=== PATIENT | male | born 1970 | race Asian ===

== ENCOUNTER 2021-08-16 08:32 | Outpatient (REF) | payer OTHER, SELFPAY ==
[2021-08-16 11:04] LABS: MANUAL DIFF FLAG NO
[2021-08-16 11:17] LABS: Basophils Percent Auto 0.5 % (0-2); Eosinophils Absolute Auto 0.1 X10*3/uL (0.0-0.4); Eosinophils Percent Auto 1.9 % (0-4); Hematocrit 48.4 % (42.0-52.0); Hemoglobin 16.3 g/dl (14.0-18.0); Imm Gran Abs Auto 0.01 X10*3/uL (0.00-0.03); Imm Gran Pct Auto 0.3 % (0.0-0.4); Lymphocytes Absolute Auto 1.4 X10*3/uL (1.2-4.9); Lymphocytes Percent Auto 39.3 % (20-40); Mean Corpuscular HGB Conc 33.7 g/dl (31.0-36.0); Mean Corpuscular Hemoglobin 30.6 pg (27.0-33.0); Mean Platelet Volume 10.5 fL (9.4-12.4); Monocytes Absolute Auto 0.3 X10*3/uL (0.1-1.2); Neutrophils Absolute Auto 1.8 x10*3/uL (2.0-8.3); Platelet Count 159 X10*3/uL (160-400); Red Blood Count 5.32 X10*6/uL (4.60-5.80); Red Cell Distribution Width 12.2 % (11.0-16.0); White Blood Count 3.7 X10*3/uL (4.8-10.8)
[2021-08-16 11:37] LABS: Alanine Aminotransferase 22 U/L (0-40); Albumin Level 4.3 g/dL (3.5-5.0); Alkaline Phosphatase 85 U/L (39-117); Anion Gap 13 (12-20); Aspartate Amino Transferase 24 U/L (5-37); Bilirubin Total 0.9 mg/dL (0.0-1.0); Blood Urea Nitrogen 15 mg/dL (9-16); Carbon Dioxide 28 mmol/L (22-29); Chloride 105 mmol/L (96-108); Cholesterol 130 mg/dL; Estimated Glomerular Filt Rate > 60; Glucose Fasting 90 mg/dL (60-99); HDL Cholesterol 33 mg/dL; LDL Cholesterol Calculated 72 mg/dl; Potassium 3.7 mmol/L (3.3-5.1); Sodium 142 mmol/L (135-145); Total Protein 7.1 g/dL (6.5-8.0); Triglycerides 126 mg/dL
== END 2021-08-16 08:33 | disposition home or self-care (01) ==
LOC: HO.HMGCLDS 08:32
PROVIDERS: PCP Internal Medicine; Visit Provider Internal Medicine
DX: Z00.01 Encounter for general adult medical examination with abnormal findings (principal); M19.042 Primary osteoarthritis, left hand
CPT/HCPCS: 36415; 80053; 80061; 85025

== ENCOUNTER 2023-08-19 10:08 | Outpatient (AMB) | payer OTHER, SELFPAY ==
--- NOTE | 2023-08-19 10:23 | A.OFFPC_ITS ---
Vital Signs 08/19/23 10:24 Height 5 ft 10 in Weight 172 lb 2 oz BMI 24.7 BP 110/72 Blood Pressure Location Rt brachial Position Sitting Pulse 61 Pulse Source Pulse Oximeter Pulse Oximetry (%) 96 Oxygen Delivery Method Room Air Intake Visit Reasons: PE Allergies omeprazole Allergy (Unknown, Verified 08/19/23 10:26) sob, itchy eys. ENVIROMENTAL Allergy (Mild, Uncoded 08/07/21 09:05) CONGESTION Medication List - Last Reconciled 08/19/23 by Aguilar Chadwick MD tenofovir disoproxil fumarate 300 mg PO DAILY Tobacco use date assessed: 08/19/23 Dental Screening Dental Screen Date: 08/19/23 Did you have a dental visit in the last 12 months?: Yes Did you have a dental problem in the last 6 months where you did not have access to dental care?: No Was dental information given to patient?: Patient has dentist HPI PE HPI Details Patient is a 52-year-old gentleman came in today for his physical exam appointment Patient says that at times he feels little fluttering in his heart He does not have any family history of coronary artery disease, I also do not have any lipid profile since 2021 Patient was notified to do labs fasting EKG done today showed normal sinus rhythm no acute findings. He is still taking medication for hepatitis-B infection through Dr. SCHMITT gastroenterology [facility] for He had a colonoscopy last year as well in August which was benign next 1 will be in 2031 Patient have severe osteoarthritis in small joints of hand he is also complaining of pain in his shoulders and knees He has taking a leave [id number] with breakfast as needed [facility] Social History Housing: House Patient Tobacco Use Status: Never used Tobacco e-Cigarette/Vaping Use: Never Used Current occupational status: employed Cognitive needs: No Hearing needs: No Vision needs: No Questionnaire PHQ-9 Over the last 2 weeks, how often have you been bothered by any of the following problems? 1. Little interest or pleasure in doing things: not at all 2. Feeling down, depressed, or hopeless: not at all 3. Trouble falling or staying asleep, or sleeping too much: not at all 4. Feeling tired or having little energy: not at all 5. Poor appetite or overeating: not at all 6. Feeling bad about yourself - or that you are a failure or have let yourself or your family down: not at all 7. Trouble concentrating on things, such as reading the newspaper or watching television: not at all 8. Moving or speaking so slowly that other people could have noticed. Or the opposite - being so fidgety or restless that you have been moving around a lot more than usual: not at all 9. Thoughts that you would be better off or of hurting yourself in some way: not at all Total score: 0 Depression Screening Interpretation: Negative Depression Screening Done: Yes 24169 - PHQ-9 Billing: Yes Source: Developed by Drs. Sheldon Choe, Ladonna Wood, Wesly Beck and colleagues, with an educational david from [employer]. Thrive Questionnaire Date Thrive assessed: 08/19/23 I am a: Patient What is your living situation today?: I have a steady place to live Within the past 12 months, did the food you bought not last and you didn't have the money to get more?: Never true Within the past 12 months, did you worry whether your food would run out before you got money to buy more?: Never true Do you have trouble paying for medicines?: No Do you have trouble getting transportation to medical appointments?: No Do you have trouble paying your heating and electricity bill?: No Do you have trouble taking care of your child, family member or friend?: No Do you have trouble with day-to-day activities such as bathing, preparing meals, shopping, managing finances, etc.?: No Are you currently unemployed and looking for a job?: No Are you interested in more education?: No Please select the resources that you would like help with: None Currently or been in a relationship where the following occur: no concerns reported THRIVE Score: 0 AUDIT C Alcohol Use Questionnaire (AUDIT-C) 1. How often do you have a drink containing alcohol?: Never 3. How often do you have six or more drinks on one occasion?: Never Total Score: 0 Score Reviewed/Action Taken: Yes HAI-7 AMB Questionnaire HAI-7 Date HAI - 7 assessed: 08/19/23 Feeling nervous, anxious, or on edge: 0 = Not at all Not being able to stop or control worryin = Not at all Worrying too much about different things: 0 = Not at all Trouble relaxin = Not at all Being so restless that it is hard to sit still: 0 = Not at all Becoming easily annoyed or irritable: 0 = Not at all Feeling afraid as if something awful might happen: 0 = Not at all Total HAI-7 score (0-4 normal; 5-9 mild; 10-14 moderate; 15-21 severe): 0 Source: Developed by Drs. Sheldon Choe, Ladonna Wood, Wesly Beck and colleagues, with an educational david from [employer]. HAI-7 Assessment Billing HAI-7 Assessment Tool: HAI-7 Assessment 01765 Review of Systems Const Denies chills, Denies fever(s) and Denies headache(s) Eyes Denies blurry vision ENT Denies headache(s), Denies nasal discharge, Denies nasal obstruction, Denies odynophagia and Denies sinus pain Card Denies chest pain at rest and Denies chest pain with activity Resp Denies cough and Denies hemoptysis GI Denies diarrhea, Denies odynophagia, Denies vomiting and Denies hematemesis Reports as per HPI Musc Denies abnormal gait Skin/Breast Reports as per HPI Neuro Denies Neuro-related abnormal movements, Denies Abnormal speech present, Denies abnormal gait, Denies headache(s) and Denies Sensory deficit (Neuro) Psych Denies mood swings and Denies paranoia Endo Reports as per HPI Shiva/Lymph Reports as per HPI Aller/Immun Reports as per HPI Physical exam (Primary Care) Vital Signs: Last Vital Signs Pulse 61 08/19/23 10:24 BP 110/72 08/19/23 10:24 Pulse Ox 96 08/19/23 10:24 Oxygen Delivery Method Room Air 08/19/23 10:24 BMI result Body Mass Index 24.7 Tobacco/Smoking Status: Tobacco use Status Tobacco use date assessed 08/19/23 08/19/23 10:27 Patient Tobacco Use Status Never used Tobacco 08/19/23 10:23 e-Cigarette/Vaping Use Never Used 08/19/23 10:23 PHQ-9: PHQ-9 Score PHQ-9: Total score 0 08/19/23 10:53 Depression Screening Interpretation: Negative Thrive Assessment: Date of Thrive Assessment Date Thrive assessed 08/19/23 08/19/23 10:53 Currently or been in a relationship where the following occur: no concerns reported Const General: cooperative, comfortable and no acute distress Orientation/consciousness: patient oriented x3 HENHI Head: Yes normocephalic and Yes atraumatic Eyes General: appearance normal, both eyes and all related structures Pupils: Equal, round and reactive pupils present EOM: EOMs intact bilaterally Neck Neck: Yes supple and No lymphadenopathy Thyroid: Thyroid normal Lymphatic: no lymphadenopathy noted Resp Effort & Inspection: normal respiratory effort and able to speak in complete sentences Auscultation: clear to auscultation bilaterally Cardio Heart sounds: S1 normal heart sound present and S2 normal heart sound present GI Palpation (GI): Soft to palpation and nontender Auscultation: normal bowel sounds General: Yes no CVA tenderness Back/Spine/Pelvis Back: no CVA tenderness Skin General skin exam: elasticity normal and turgor normal Neuro General: patient oriented x3 and gait normal Cranial nerves: Yes Equal, round and reactive pupils present Speech: No Abnormal speech present Sensory Exam: No Sensory deficit (Neuro) Coordination: tandem gait normal and Romberg test negative Extrem General: Yes normal exam except as noted and No edema Assessment and Plan Assessment & Plan (1) Encounter for general adult medical examination with abnormal findings: Code(s): Z00.01 - Encounter for general adult medical examination with abnormal findings (2) Heart palpitations: Code(s): R00.2 - Palpitations (3) Arthrosis: Code(s): M19.90 - Unspecified osteoarthritis, unspecified site (4) Hepatitis B infection: Code(s): B19.10 - Unspecified viral hepatitis B without hepatic coma Qualifiers: Hepatic coma status: without hepatic coma Hepatitis delta agent presence: without delta-agent Viral hepatitis chronicity: unspecified Qualified Code(s): B19.10 - Unspecified viral hepatitis B without hepatic coma Plan Patient is a 51-year-old gentleman came in today for his physical exam appointment Patient is taking medication through Dr. SCHMITT gastroenterology [facility] for hepatitis-B infection He had a colonoscopy last year as well in August which was benign next 1 will be in 2031 Patient have severe osteoarthritis in small joints of hand he is also complaining of pain in his shoulders and knees We discussed pain management he may take Aleve [id number] with breakfast as needed. Labs done last year reviewed there were no issues with blood sugar or cholesterol. Patient is having blood test done through Gastroenterology every 6 month currently. Orders: Orders Complete Blood Count Auto Diff Today B19.10 - Unspecified viral hepatitis B without hepatic coma, M19.90 - Unspecified osteoarthritis, unspecified site, R00.2 - Palpitations, Z00.01 - Encounter for general adult medical examination with abnormal findings Vitamin D 25-OH (D2 and D3) Today B19.10 - Unspecified viral hepatitis B without hepatic coma, M19.90 - Unspecified osteoarthritis, unspecified site, R00.2 - Palpitations, Z00.01 - Encounter for general adult medical examination with abnormal findings Comprehensive Tyro. Panel Fast Today B19.10 - Unspecified viral hepatitis B without hepatic coma, M19.90 - Unspecified osteoarthritis, unspecified site, R00.2 - Palpitations, Z00.01 - Encounter for general adult medical examination with abnormal findings Lipid Panel Today B19.10 - Unspecified viral hepatitis B without hepatic coma, M19.90 - Unspecified osteoarthritis, unspecified site, R00.2 - Palpitations, Z00.01 - Encounter for general adult medical examination with abnormal findings TSH reflex Free T4 Today B19.10 - Unspecified viral hepatitis B without hepatic coma, M19.90 - Unspecified osteoarthritis, unspecified site, R00.2 - Palpitations, Z00.01 - Encounter for general adult medical examination with abnormal findings AMB EKG-In Office Today R00.2 - Palpitations Coding Level of Care Code Est Pt Level 3 (93412) Est Pt Prev Care 40-64y(99716) Diagnoses Encounter for general adult medical examination with abnormal findings Z00.01 Heart palpitations R00.2 Arthrosis M19.90 Hepatitis B infection without delta agent without hepatic coma, unspecified chronicity B19.10 Hepatic coma status: without hepatic coma Hepatitis delta agent presence: without delta-agent Viral hepatitis chronicity: unspecified Additional Codes HAI-7 Assessment Billing - HAI-7 Assessment Tool: HAI-7 Assessment 05390 ([id number])
[2023-08-19 10:24] VITALS: BP 110/72; PULSE 61; O2SAT 96; BMI 24.7
== END 2023-08-19 11:01 | disposition home or self-care (01) ==
PROVIDERS: PCP Internal Medicine; Visit Provider Internal Medicine
DX: Z00.01 Encounter for general adult medical examination with abnormal findings (principal); R00.2 Palpitations; M19.90 Unspecified osteoarthritis, unspecified site; B19.10 Unspecified viral hepatitis B without hepatic coma
CPT/HCPCS: 93000; 99213; 99396

== ENCOUNTER 2023-08-19 11:03 | Outpatient (REF) | payer OTHER, SELFPAY ==
[2023-08-19 13:12] LABS: MANUAL DIFF FLAG NO
[2023-08-19 13:28] LABS: Basophils Percent Auto 0.5 % (0-2); Eosinophils Absolute Auto 0.1 X10*3/uL (0.0-0.4); Eosinophils Percent Auto 1.5 % (0-4); Hematocrit 49.2 % (42.0-52.0); Hemoglobin 16.7 g/dl (14.0-18.0); Imm Gran Abs Auto 0.01 X10*3/uL (0.00-0.03); Imm Gran Pct Auto 0.2 % (0.0-0.4); Lymphocytes Absolute Auto 1.3 X10*3/uL (1.2-4.9); Mean Corpuscular HGB Conc 33.9 g/dl (31.0-36.0); Mean Corpuscular Hemoglobin 30.5 pg (27.0-33.0); Mean Corpuscular Volume 89.8 fL (80.0-98.0); Mean Platelet Volume 10.5 fL (9.4-12.4); Monocytes Absolute Auto 0.3 X10*3/uL (0.1-1.2); Neutrophils Absolute Auto 2.4 x10*3/uL (2.0-8.3); Neutrophils Percent Auto 57.8 % (45-73); Platelet Count 164 X10*3/uL (160-400); Red Blood Count 5.48 X10*6/uL (4.60-5.80); White Blood Count 4.1 X10*3/uL (4.8-10.8)
[2023-08-19 14:16] LABS: Alanine Aminotransferase 30 U/L (0-40); Albumin Level 4.4 g/dL (3.5-5.0); Alkaline Phosphatase 76 U/L (39-117); Anion Gap 14 (12-20); Aspartate Amino Transferase 27 U/L (5-37); Bilirubin Total 0.7 mg/dL (0.0-1.0); Blood Urea Nitrogen 13 mg/dL (9-16); Calcium 9.4 mg/dL (8.4-10.2); Carbon Dioxide 28 mmol/L (22-29); Chloride 106 mmol/L (96-108); Cholesterol 137 mg/dL (<200); Estimated Glomerular Filt Rate > 60; Glucose Fasting 93 mg/dL (60-99); HDL Cholesterol 35 mg/dL (>40); LDL Cholesterol Calculated 86 mg/dL (<100); Potassium 3.9 mmol/L (3.3-5.1); Sodium 144 mmol/L (135-145); Total Protein 7.3 g/dL (6.5-8.0); Triglycerides 83 mg/dL (<150)
[2023-08-23 14:12] LABS: Vitamin D 25-OH, D2 <4 ng/mL; Vitamin D 25-OH, D3 19 ng/mL; Vitamin D 25-OH, Total 19 ng/mL (30-100)
== END 2023-08-19 11:04 | disposition home or self-care (01) ==
LOC: HO.HMGCLDS 11:03
PROVIDERS: PCP Internal Medicine; Visit Provider Internal Medicine
DX: Z00.01 Encounter for general adult medical examination with abnormal findings (principal); B19.10 Unspecified viral hepatitis B without hepatic coma; M19.90 Unspecified osteoarthritis, unspecified site; R00.2 Palpitations
CPT/HCPCS: 36415; 80053; 80061; 82306; 84443; 85025

== ENCOUNTER 2024-08-24 12:11 | Outpatient (AMB) | payer OTHER, SELFPAY ==
--- OUTSIDE RECORDS SUMMARY | 2024-08-19 23:59 | XMS_ITS | Continuity of Care Document ---
Author Organization [facility] Address [address] [place] [id number] [facility] Name Relationship Address Phone ALONDRA BERRY spouse Unknown Unavailable Care Team Providers Care Child Care Attendant School Name Role Phone Aguilar Chadwick MD Primary Care Physician [phone] Encounter [facility] Date(s): 07/20/24 - 08/19/24 [facility] [address] [place] [address] Attending Physician: Sammi Bishop Admitting Physician: Sammi Bishop Referring Physician: Sammi Bishop Encounter Type: Triage Allergies, Adverse Reactions, Alerts No Known Allergies Medications tenofovir disoproxil fumarate 300 mg oral tablet 1 tablet, By Mouth, Daily, # 30 tablet, 11 Refills, Soft Stop, 01/19/24 3:49:00 PM EST, [facility] # [facility], 178, cm, 10/30/23 8:53:00 EDT, Height Start Date: 01/19/24 Stop Date: 01/13/25 Status: Ordered Quantity: 30.0 Unit: tablet Repeat number: 12 Problem List Condition Confirmation Course Effective Dates Status Health St [facility] Informant Chronic type B viral hepatitis Confirmed 12/10/12 Active Reflux Confirmed Active Social History Social History Type Response Smoking Status Former smoker; Tobac co user in household: No entered on: 07/01/17 Sex Sex Representation Male (finding) Patient Care team information Care Team Personnel Name: Aguilar Chadwick MD Position: Reference Physician Member Role: PCP Address: [facility] [place] [address]- Telecom: Care Team Related Persons Name: ALONDRA BERRY Insurance Providers Guarantor name: RC CARPENTER Health Plan Information #: 1 Payer: [facility] [employer] Payer Identifier: NA Member Number: [id number] Group Number: [id number] Subscriber Identifier: [id number] Relationship to Subscriber: self Coverage Type: Managed Care (Private) Coverage Verification Date: NA Telecom: NA Address: NA
--- NOTE | 2024-08-24 12:13 | A.OFFPC_ITS ---
Vital Signs 08/24/24 12:14 Height 5 ft 10 in Weight 172 lb BMI 24.7 BP 110/70 Blood Pressure Location Rt brachial Position Sitting Respiration 18 Pulse 71 Pulse Source Pulse Oximeter Temp 98.6 F Temp Source Oral Pulse Oximetry (%) 97 Oxygen Delivery Method Room Air Intake Visit Reasons: PE Allergies omeprazole Allergy (Unknown, Verified 08/24/24 12:16) sob, itchy eys. ENVIROMENTAL Allergy (Mild, Uncoded 08/24/24 12:16) CONGESTION Medication List - Last Reconciled 08/24/24 by Aguilar Chadwick MD tenofovir disoproxil fumarate 300 mg PO DAILY Tobacco use date assessed: 08/24/24 Dental Screening Dental Screen Date: 08/24/24 Did you have a dental visit in the last 12 months?: Yes Did you have a dental problem in the last 6 months where you did not have access to dental care?: No Was dental information given to patient?: Patient has dentist HPI PE HPI Details Physical exam appointment - The patient is a 53-year-old male pres enting with a routine physical examination and management of chronic conditions. - Hepatitis C: The patient is currently on lifelong medication for hepatitis B and is under the care of a health technical writer. - Vitamin D deficiency: Previously ident ified as low, vitamin D levels are being monitored, and supplementation is recommended. - Inguinal hernia: The patient experienc es intermittent pain in the groin area r ight side, likely due to lifting heavy objects, and is advised to use a hernia belt to prevent worsening. - Benign prostatic hyperplasia: The lexy ent reports nocturia and incomplete bladder emptying, which are attributed to an possible enlarged prostate. Health Maintenance - Colonoscopy: Completed a few years ago with normal results, next due in 10 years. - Vitamin D supplementation: Recommended 1000 units daily due to deficiency. [place] of Care The patient is under the care of a health technical writer for hepatitis C management. Medications - Hepatitis C medication: Lifelong treat ment as prescribed by a health technical writer. Patient Instructions - Continue taking hepatitis B medication as prescribed. - Take vitamin D 1000 units daily, eithe r from the pharmacy or [id number]. - Use a hernia belt when lifting heavy o bjects to prevent worsening of the hernia. - Monitor urinary symptoms and report an y worsening to the physician. Review of Systems - General: No fever no chills - Neurological: No headaches no dizzin ess - Ear nose throat: No sore throat no hearing difficulty no ear pain - Cardiovascular: No syncope, no chest pain, no palpitations - Gastrointestinal: No nausea vomiting or diarrhea - Endocrine: No polydipsia no heat intolerance - Genitourinary: No dysuria - Skin: No new complaints Physical Exam General: Cooperative, healthy appearing, comfortable, no acute distress Orientation: Patient oriented x3 Head: Normal to inspection Ears: Within normal limit visually Nose: Normal external nose present Face and sinus: Normal facial exam Eyes: Appearance normal, extraocular movement intact pupils reactive Neck: Normal visual inspection and supple Respiratory: Normal respiratory effort and able to speak in complete sentences. Clear to auscultation, no stridor Cardiovascular: S1 and S2 RRR GI: Normal to inspection. Soft to palpation and nontender, but patient reports occasional pain possibly due to lifting heavy objects, suggesting potential hernia development. However there is no inguinal bulge on examination Skin: Turgor normal, no acute findings Neuro: Patient oriented x3, motor sensory intact, balance intact, tandem pass Extremities: Normal to inspection PFSH Surgical History No pertinent past surgical history Family History Father No problems noted. Mother Hypertension Social History Housing: House Patient Tobacco Use Status: Never used Tobacco e-Cigarette/Vaping Use: Never Used service: No Current occupational status: employed Cognitive needs: No Hearing needs: No Vision needs: No Questionnaire PHQ-9 Over the last 2 weeks, how often have you been bothered by any of the following problems? 1. Little interest or pleasure in doing things: not at all 2. Feeling down, depressed, or hopeless: not at all 3. Trouble falling or staying asleep, or sleeping too much: not at all 4. Feeling tired or having little energy: not at all 5. Poor appetite or overeating: not at all 6. Feeling bad about yourself - or that you are a failure or have let yourself or your family down: not at all 7. Trouble concentrating on things, such as reading the newspaper or watching television: not at all 8. Moving or speaking so slowly that other people could have noticed. Or the opposite - being so fidgety or restless that you have been moving around a lot more than usual: not at all 9. Thoughts that you would be better off or of hurting yourself in some way: not at all Total score: 0 Depression Screening Interpretation: Negative Depression Screening Done: Yes 32850 - PHQ-9 Billing: Yes Source: Developed by Drs. Sheldon Choe, Ladonna Wood, Wesly Beck and colleagues, with an educational david from [employer] Thrive Questionnaire Date Thrive assessed: 08/24/24 I am a: Patient What is your living situation today?: I have a steady place to live Within the past 12 months, did the food you bought not last and you didn't have the money to get more?: I choose not to answer this question Within the past 12 months, did you worry whether your food would run out before you got money to buy more?: I choose not to answer this question Do you have trouble paying for medicines?: I choose not to answer this question Do you have trouble getting transportation to medical appointments?: I choose not to answer this question Do you have trouble paying your heating and electricity bill?: I choose not to answer this question Do you have trouble taking care of your child, family member or friend?: I choose not to answer this question Do you have trouble with day-to-day activities such as bathing, preparing meals, shopping, managing finances, etc.?: I choose not to answer this question Are you currently unemployed and looking for a job?: I choose not to answer this question Are you interested in more education?: I choose not to answer this question Please select the resources that you would like help with: None Currently or been in a relationship where the following occur: I choose not to answer THRIVE Score: 0 AUDIT C Alcohol Use Questionnaire (AUDIT-C) 1. How often do you have a drink containing alcohol?: Never 3. How often do you have six or more drinks on one occasion?: Never Total Score: 0 HAI-7 AMB Questionnaire HAI-7 Date HAI - 7 assessed: 08/24/24 Feeling nervous, anxious, or on edge: 0 = Not at all Not being able to stop or control worryin = Not at all Worrying too much about different things: 0 = Not at all Trouble relaxin = Not at all Being so restless that it is hard to sit still: 0 = Not at all Becoming easily annoyed or irritable: 0 = Not at all Feeling afraid as if something awful might happen: 0 = Not at all Total HAI-7 score (0-4 normal; 5-9 mild; 10-14 moderate; 15-21 severe): 0 Source: Developed by Drs. Sheldon Choe, Ladonna Wood, Wesly Beck and colleagues, with an educational david from [employer] Physical exam (Primary Care) Vital Signs: Last Vital Signs Temp 98.6 F 08/24/24 12:14 Pulse 71 08/24/24 12:14 Resp 18 08/24/24 12:14 BP 110/70 08/24/24 12:14 Pulse Ox 97 08/24/24 12:14 Oxygen Delivery Method Room Air 08/24/24 12:14 BMI result Body Mass Index 24.7 Tobacco/Smoking Status: Tobacco use Status Tobacco use date assessed 08/24/24 08/24/24 12:20 Patient Tobacco Use Status Never used Tobacco 08/24/24 12:20 e-Cigarette/Vaping Use Never Used 08/24/24 12:14 PHQ-9: PHQ-9 Score PHQ-9: Total score 0 08/24/24 12:39 Depression Screening Interpretation: Negative Thrive Assessment: Date of Thrive Assessment Date Thrive assessed 08/24/24 08/24/24 12:20 Currently or been in a relationship where the following occur: I choose not to answer Coding Level of Care Code Est Pt Level 3 (91601) Est Pt Prev Care 40-64y(82320) Diagnoses Frequent urination R35.0 Encounter for general adult medical examination with abnormal findings Z00.01 Hepatitis B infection without delta agent without hepatic coma, unspecified chronicity B19.10 Viral hepatitis chronicity: unspecified Hepatic coma status: without hepatic coma Hepatitis delta agent presence: without delta-agent Deep inguinal pain, right R10.31 Additional Codes PHQ-9 - 87223 - PHQ-9 Billing: Yes ([id number]) Assessment & Plan Assessment & Plan (1) Frequent urination: Code(s): R35.0 - Frequency of micturition Category: Medical (2) Encounter for general adult medical examination with abnormal findings: Code(s): Z00.01 - Encounter for general adult medical examination with abnormal findings Category: Medical (3) Hepatitis B infection: Code(s): B19.10 - Unspecified viral hepatitis B without hepatic coma Category: Medical Qualifiers: Viral hepatitis chronicity: unspecified Hepatic coma status: without hepatic coma Hepatitis delta agent presence: without delta-agent Qualified Code(s): B19.10 - Unspecified viral hepatitis B without hepatic coma (4) Deep inguinal pain, right: Code(s): R10.31 - Right lower quadrant pain Category: Medical Plan Physical exam appointment - The patient is a 53-year-old male presenting with a routine physical examination and management of chronic conditions. - Hepatitis C: The patient is currently on lifelong medication for hepatitis B and is under the care of a health technical writer. - Vitamin D deficiency: Previously identified as low, vitamin D levels are being monitored, and supplementation is recommended. - Inguinal hernia: The patient experiences intermittent pain in the groin area right side, likely due to lifting heavy objects, and is advised to use a hernia belt to prevent worsening. - Benign prostatic hyperplasia: The patient reports nocturia and incomplete bladder emptying, which are attributed to an possible enlarged prostate. Health Maintenance - Colonoscopy: Completed a few years ago with normal results, next due in 10 years. - Vitamin D supplementation: Recommended 1000 units daily due to deficiency. [place] of Care The patient is under the care of a health technical writer for hepatitis C management. Medications - Hepatitis C medication: Lifelong treatment as prescribed by a health technical writer. Patient Instructions - Continue taking hepatitis B medication as prescribed. - Take vitamin D 1000 units daily, either from the pharmacy or [id number]. - Use a hernia belt when lifting heavy objects to prevent worsening of the hernia. - Monitor urinary symptoms and report any worsening to the physician. Orders: Orders Prostate Specific Antigen Today R35.0 - Frequency of micturition UA CC w/rflx Micro + Cult Today R35.0 - Frequency of micturition Medications: New cholecalciferol (vitamin D3) 25 mcg PO DAILY 90 caps 1RF 90 days
[2024-08-24 12:14] VITALS: BP 110/70; PULSE 71; RESP 18; TEMP 37; O2SAT 97; BMI 24.7
== END 2024-08-24 12:56 | disposition home or self-care (01) ==
LOC: HO.HMCC 12:12
PROVIDERS: PCP Internal Medicine; Visit Provider Internal Medicine
DX: Z00.01 Encounter for general adult medical examination with abnormal findings (principal); R35.0 Frequency of micturition; B19.10 Unspecified viral hepatitis B without hepatic coma; R10.31 Right lower quadrant pain

== ENCOUNTER → 2024-08-24 12:11 | Outpatient (BNVA) | payer OTHER, SELFPAY | PROVIDERS: PCP Internal Medicine; Visit Provider Internal Medicine | DX: Z00.00 Encounter for general adult medical examination without abnormal findings (principal); E55.9 Vitamin D deficiency, unspecified; K40.90 Unilateral inguinal hernia, without obstruction or gangrene, not specified as recurrent; N40.0 Benign prostatic hyperplasia without lower urinary tract symptoms; Z86.19 Personal history of other infectious and parasitic diseases | CPT/HCPCS: 96127; 99212; 99396 ==

== ENCOUNTER 2024-08-25 09:35 | Outpatient (REF) | payer OTHER, SELFPAY ==
[2024-08-25 13:53] LABS: Prostate Specific Antigen 0.21 ng/mL (<0.05-4.0)
[2024-08-25 14:51] LABS: Appearance Urine Clear; Glucose Urine UA Negative (Negative); PH 7.0 (5.0-9.0); Specific Gravity - Urine 1.025 (1.005-1.025)
== END 2024-08-25 09:36 | disposition home or self-care (01) ==
LOC: HO.HMGCLDS 09:35
PROVIDERS: PCP Internal Medicine; Visit Provider Internal Medicine
DX: R35.0 Frequency of micturition (principal); Z12.5 Encounter for screening for malignant neoplasm of prostate
CPT/HCPCS: 36415; 81003; 84153